=== PATIENT | female | born 1990 | race Asian ===

== ENCOUNTER 2016-05-09 05:11 | Inpatient (IN) | payer OTHER ==
[~2016-05-09] VITALS: Ht 167.6 cm; Wt 77.0 kg
[2016-05-09] VITALS (8 sets, daily range): BP systolic 100–118; BP diastolic 55–72
[~2016-05-09 05:11] MED LIST: ENDOCET 5-3251 EACH PO; FERROUS SULFAT325 MG PO; IBUPROFEN800 MG PO; PRENATAL TABLE1 EAC3 PO; TUMS500 MG PO
[2016-05-09 06:29] LABS: EOSINOPHIL (%) 1.6 % (0-5); EOSINOPHIL COUNT 0.1 K/uL (0-0.3); HEMATOCRIT 27.8 % (36.0-46.0); IMMATURE GRANULOCYTE (%) 0.9 % (0.0-0.7); IMMATURE GRANULOCYTE COUNT 0.1 K/uL; LYMPHOCYTE COUNT 2.1 K/uL (1.0-2.8); MCH 27.3 PG (29.0-34.0); MCHC 33.1 G/DL (30.0-36.0); MCV 82.5 FL (83-99); MEAN PLAT.VOLUME 11.2 uM^3 (9.5-12.4); MONOCYTE (%) 8.4 % (3-12); MONOCYTE COUNT 0.7 K/uL (0-0.8); NEUTROPHIL (%) 64.4 % (45-76); NEUTROPHIL COUNT 5.6 K/uL (1.8-6.4); PLATELET COUNT 192 K/uL (156-360); RBC DIS.WIDTH-CV 13.9 % (11.8-14.6); RBC DIS.WIDTH-SD 42.2 % (39-53); RED BLOOD COUNT 3.37 M/uL (3.80-5.20); WHITE BLOOD COUNT 8.7 K/uL (4.1-10.2)
[2016-05-10 03:28] VITALS: BP 104/66
[2016-05-10 07:19] LABS: EOSINOPHIL (%) 1.2 % (0-5); EOSINOPHIL COUNT 0.1 K/uL (0-0.3); HEMATOCRIT 29.9 % (36.0-46.0); IMMATURE GRANULOCYTE (%) 0.5 % (0.0-0.7); IMMATURE GRANULOCYTE COUNT 0.1 K/uL; LYMPHOCYTE COUNT 1.9 K/uL (1.0-2.8); MCH 26.9 PG (29.0-34.0); MCHC 32.1 G/DL (30.0-36.0); MCV 83.8 FL (83-99); MEAN PLAT.VOLUME 11.5 uM^3 (9.5-12.4); MONOCYTE (%) 6.5 % (3-12); MONOCYTE COUNT 0.8 K/uL (0-0.8); NEUTROPHIL (%) 75.2 % (45-76); NEUTROPHIL COUNT 8.7 K/uL (1.8-6.4); PLATELET COUNT 189 K/uL (156-360); RBC DIS.WIDTH-SD 42.7 % (39-53); RED BLOOD COUNT 3.57 M/uL (3.80-5.20)
[2016-05-10 07:20] LABS: WHITE BLOOD COUNT 11.6 K/uL (4.1-10.2)
[2016-05-10 07:59] VITALS: BP 110/69
[2016-05-10 11:45] VITALS: BP 107/67
[2016-05-10 17:04] VITALS: BP 149/70
[2016-05-10 19:44] VITALS: BP 109/67
[2016-05-10 23:20] VITALS: BP 114/75
[2016-05-11 03:03] VITALS: BP 112/78
[2016-05-11 07:31] VITALS: BP 103/64
[2016-05-11 16:05] VITALS: BP 110/68
[2016-05-11 22:43] VITALS: BP 115/69
[2016-05-12 07:33] VITALS: BP 109/73
[2016-05-12] MEDS ORDERED: CHROMAGEN,1 CAPSULE PO (10:18)
[2016-05-12] MEDS ORDERED: ENDOCET 5-3251 EACH PO (10:18)
[2016-05-12] MEDS ORDERED: IBUPROFEN800 MG PO (10:18)
== END 2016-05-12 12:20 | disposition home or self-care (01) | DRG 765 ==
LOC: 2WEST 05:11 → 2SOUTH 09:49 → 2WEST 05-12 12:20
PROVIDERS: Obstetrics & Gynecology
PROC: 10D00Z1 Extraction of Products of Conception, Low, Open Approach (ICD-10-PCS; principal; 2016-05-09)
DX: O34.211 Maternal care for low transverse scar from previous cesarean delivery (principal); D62 Acute posthemorrhagic anemia; O99.03 Anemia complicating the puerperium; N85.8 Other specified noninflammatory disorders of uterus; Z3A.39 39 weeks gestation of pregnancy; Z37.0 Single live birth
CPT/HCPCS: 85025; 86850; 86900; 86901; J0690; J1170; J1200; J2274; J2405; J7120